=== PATIENT | female | born 1995 | race Caucasian/White ===

== ENCOUNTER 2019-06-14 18:24 | Emergency (ER) | payer OTHER ==
[~2019-06-14] VITALS: Ht 160 cm; Wt 48.5 kg
[2019-06-15] MEDS ORDERED: KETO10TA2 PO (03:07)
[2019-06-15] MEDS ORDERED: MECLIZINE HCL25 M1 PO (03:07)
== END 2019-06-15 03:16 | disposition home or self-care (01) ==
LOC: ER 18:24
DX: R42 Dizziness and giddiness (principal); R51 Headache

== ENCOUNTER 2022-02-28 19:17 | Emergency (ER) | payer OTHER ==
[~2022-02-28] VITALS: Ht 157.5 cm; Wt 51.3 kg
[~2022-02-28 19:17] MED LIST: KETO10TA2 PO; MECLIZINE HCL25 M1 PO
== END 2022-02-28 22:43 | disposition home or self-care (01) ==
LOC: ER 19:17
DX: S62.396A Other fracture of fifth metacarpal bone, right hand, initial encounter for closed fracture (principal); Y93.9 Activity, unspecified; Y92.9 Unspecified place or not applicable; M79.641 Pain in right hand